=== PATIENT | male | born 1975 | race Caucasian/White ===

== ENCOUNTER 2017-07-15 11:03 | Emergency (ER) | payer OTHER ==
[2017-07-15 11:14] VITALS: BP 112/66; PULSE 79; TEMP 98.5; BMI 36.6
[2017-07-15] MEDS ORDERED: ALBUTEROL SO4 2.5/IPRATROPIUM 0.5 INH SOL 3 ML VIAL.NEB. NEB ONE (12:15)
[2017-07-15] MEDS ORDERED: predniSONE 20 MG TABLET (UD) PO ONE (12:24)
--- NOTE | 2017-07-15 12:36 | PDOC ---
History of Present Illness - General Chief Complaint: Asthma Stated Complaint: SOB (ASTHMA) Time Seen by Provider: 07/15/17 12:03 History Source: Patient - History of Present Illness Timing/Duration: reports: yesterday Severity: reports: mild Associated Symptoms: reports: shortness of breath, wheezing. denies: cough, fever/chills Past History - Past Medical History Allergies/Adverse Reactions: Allergies Allergy/AdvReac Type Severity Reaction Status Date / Time aspirin Allergy Verified 07/15/17 11:14 Home Medications: Ambulatory Orders Albuterol 0.083% Nebulizer Suha [Ventolin 0.083% Nebulizer Soln -] 1 neb NEB Q4H #30 vial 07/15/17 Levothyroxine [Synthroid -] 112 mcg PO DAILY 07/15/17 Prednisone [Deltasone -] 40 mg PO DAILY #8 tablet 07/15/17 Sitagliptin Phosphate [Januvia] 25 mg PO ASDIR 07/15/17 Asthma: Yes COPD: No - Suicide/Smoking/Psychosocial Hx Smoking History: Never smoked Information on smoking cessation initiated: No Hx Alcohol Use: No Drug/Substance Use Hx: No Substance Use Type: None Review of Systems - Review of Systems Constitutional: No: Chills, Fever Respiratory: Yes: Shortness of Breath, Wheezing Cardiac (ROS): Yes: Chest Tightness *Physical Exam - Vital Signs Last Vital Signs Temp Pulse Resp BP Pulse Ox 98.5 F 79 19 112/66 100 07/15/17 11:12 07/15/17 11:12 07/15/17 11:12 07/15/17 11:12 07/15/17 11:12 - Physical Exam General Appearance: Yes: Appropriately Dressed. No: Apparent Distress HEENT: positive: Normal Voice. negative: Scleral Icterus (R), Scleral Icterus ( L) Neck: positive: Supple. negative: Lymphadenopathy (R), Lymphadenopathy (L) Respiratory/Chest: positive: Lungs Clear, Normal Breath Sounds. negative: Respiratory Distress, Wheezing Cardiovascular: positive: Regular Rate, S1, S2 Integumentary: positive: Dry, Warm Neurologic: positive: Fully Oriented, Alert, Normal Mood/Affect Medical Decision Making - Medical Decision Making 07/15/17 12:34 41-year-old male history of mild asthma. No admissions or intubation uses albuterol pump and nebulizer at home, here with wheezing, chest tightness and shortness of breath since last night, similar to his asthma. States asthma usually triggered by cold weather and allergies. Denies cough, fever or chills. No tobacco history. See exam Mild asthma flare Stable and well appearing with clear chest, lungs -Nebulizers -Prednisone -Reassess 07/15/17 13:09 Pt reports feeling better after one nebulizer treatment in ED and requesting discharge. Lungs remain clear on reassessment and patient able to ambulate without shortness of breath. Will dc with Pred burst. Patient also requesting refill on albuterol for his nebulizer *DC/Admit/Observation/Transfer Diagnosis at time of Disposition: Asthma flare Qualifiers: Asthma severity: mild Asthma persistence: unspecified Qualified Code(s): J45.901 - Unspecified asthma with (acute) exacerbation - Discharge Dispostion Disposition: HOME Condition at time of disposition: Improved - Prescriptions Prescriptions: Albuterol 0.083% Nebulizer Suha [Ventolin 0.083% Nebulizer Soln -] 1 neb NEB Q4H #30 vial Prednisone [Deltasone -] 40 mg PO DAILY #8 tablet - Referrals - Patient Instructions Printed Discharge Instructions: Asthma -- Adult - Post Discharge Activity Forms/Work/School Notes: Back to Work
[2017-07-15] MEDS ORDERED: predniSONE 20 MG TABLET (UD) ONE (12:41)
== END 2017-07-15 13:15 | disposition home or self-care (01) ==
LOC: JERFT 11:03
DX: J45.901 Unspecified asthma with (acute) exacerbation (principal)
CPT/HCPCS: 99281-25